=== PATIENT | female | born 1955 | race Caucasian/White ===

== ENCOUNTER 2023-06-04 09:05 | Outpatient (RCR) | payer MEDICARE, SELFPAY | END 2023-06-04 23:59 | disposition home or self-care (01) | LOC: RPT 09:05 | PROVIDERS: ATTENDING PHYSICIAN Internal Medicine | DX: M62.89 Other specified disorders of muscle (principal); N39.41 Urge incontinence; M62.81 Muscle weakness (generalized); R27.8 Other lack of coordination | CPT/HCPCS: 97014; 97112; 97140; 97162; 97530 ==

== ENCOUNTER → 2023-06-19 14:59 | Outpatient (REF) | payer MEDICARE, SELFPAY | LOC: WDC 14:59 | PROVIDERS: ATTENDING PHYSICIAN Obstetrics & Gynecology; FAMILY PHYSICIAN Internal Medicine | DX: R92.2 Inconclusive mammogram (principal) | CPT/HCPCS: 76641 ==

== ENCOUNTER → 2023-06-26 15:48 | Outpatient (REF) | payer MEDICARE, SELFPAY | LOC: RAD 15:48 | PROVIDERS: ATTENDING PHYSICIAN Internal Medicine | DX: R10.30 Lower abdominal pain, unspecified (principal) | CPT/HCPCS: 76882 ==

== ENCOUNTER 2023-07-03 18:21 | Outpatient (RCR) | payer MEDICARE, SELFPAY | END 2023-07-03 23:59 | disposition home or self-care (01) | LOC: RPT 18:21 | PROVIDERS: ATTENDING PHYSICIAN Internal Medicine | DX: M62.89 Other specified disorders of muscle (principal); N39.41 Urge incontinence; M62.81 Muscle weakness (generalized); R27.8 Other lack of coordination; Z73.6 Limitation of activities due to disability | CPT/HCPCS: 97014; 97112; 97530 ==

== ENCOUNTER 2023-07-31 15:23 | Outpatient (RCR) | payer MEDICARE, SELFPAY | END 2023-07-31 23:59 | disposition home or self-care (01) | LOC: RPT 15:23 | PROVIDERS: ATTENDING PHYSICIAN Internal Medicine | DX: M62.89 Other specified disorders of muscle (principal); N39.41 Urge incontinence; Z73.6 Limitation of activities due to disability; M62.81 Muscle weakness (generalized); R27.8 Other lack of coordination | CPT/HCPCS: 97014; 97112; 97530 ==

== ENCOUNTER 2023-08-30 14:00 | Outpatient (RCR) | payer MEDICARE, SELFPAY | END 2023-08-30 23:59 | disposition home or self-care (01) | LOC: RPT 14:00 | PROVIDERS: ATTENDING PHYSICIAN Internal Medicine | DX: M62.89 Other specified disorders of muscle (principal); N39.41 Urge incontinence; Z73.6 Limitation of activities due to disability; M62.81 Muscle weakness (generalized); R27.8 Other lack of coordination | CPT/HCPCS: 97112; 97140 ==

== ENCOUNTER 2023-09-18 14:23 | Outpatient (RCR) | payer MEDICARE, SELFPAY | END 2023-09-18 23:59 | disposition home or self-care (01) | LOC: RPT 14:23 | PROVIDERS: ATTENDING PHYSICIAN Internal Medicine | DX: N39.41 Urge incontinence (principal); M62.81 Muscle weakness (generalized); R27.8 Other lack of coordination; Z73.6 Limitation of activities due to disability | CPT/HCPCS: 97112; 97530 ==

== ENCOUNTER 2023-10-30 14:18 | Outpatient (RCR) | payer MEDICARE, SELFPAY | END 2023-10-30 23:59 | disposition home or self-care (01) | LOC: RPT 14:18 | PROVIDERS: ATTENDING PHYSICIAN Internal Medicine | DX: M62.89 Other specified disorders of muscle (principal); Z73.6 Limitation of activities due to disability; R27.8 Other lack of coordination | CPT/HCPCS: 97140; 97530 ==

== ENCOUNTER 2023-11-27 17:44 | Outpatient (RCR) | payer MEDICARE, SELFPAY | END 2023-11-27 23:59 | disposition home or self-care (01) | LOC: RPT 17:44 | PROVIDERS: ATTENDING PHYSICIAN Internal Medicine | DX: M62.89 Other specified disorders of muscle (principal); N39.41 Urge incontinence; Z73.6 Limitation of activities due to disability; M62.81 Muscle weakness (generalized); R27.8 Other lack of coordination | CPT/HCPCS: 97530 ==

== ENCOUNTER → 2023-12-03 06:24 | Day surgery (SDC) | payer MEDICARE, SELFPAY | LOC: GI 06:24 | PROVIDERS: ATTENDING PHYSICIAN Internal Medicine Gastroenterology; FAMILY PHYSICIAN Internal Medicine | DX: Z12.11 Encounter for screening for malignant neoplasm of colon (principal); Z80.0 Family history of malignant neoplasm of digestive organs; Z83.719 Family history of colon polyps, unspecified | CPT/HCPCS: G0105 ==

== ENCOUNTER 2024-01-03 15:56 | Outpatient (RCR) | payer MEDICARE, SELFPAY | END 2024-01-03 23:59 | disposition home or self-care (01) | LOC: RPT 15:56 | PROVIDERS: ATTENDING PHYSICIAN Internal Medicine; FAMILY PHYSICIAN Internal Medicine | DX: M54.2 Cervicalgia (principal); Z73.6 Limitation of activities due to disability | CPT/HCPCS: 97010; 97110; 97140; 97162 ==

== ENCOUNTER 2024-02-03 15:04 | Outpatient (RCR) | payer MEDICARE, SELFPAY | END 2024-02-03 23:59 | disposition home or self-care (01) | LOC: RPT 15:04 | PROVIDERS: ATTENDING PHYSICIAN Internal Medicine; FAMILY PHYSICIAN Internal Medicine | DX: M54.2 Cervicalgia (principal); Z73.6 Limitation of activities due to disability | CPT/HCPCS: 97010; 97110; 97140 ==

== ENCOUNTER 2024-03-04 15:59 | Outpatient (RCR) | payer MEDICARE, SELFPAY | END 2024-03-04 23:59 | disposition home or self-care (01) | LOC: RPT 15:59 | PROVIDERS: ATTENDING PHYSICIAN Internal Medicine; FAMILY PHYSICIAN Internal Medicine | DX: M54.2 Cervicalgia (principal); Z73.6 Limitation of activities due to disability | CPT/HCPCS: 97010; 97110; 97140 ==

== ENCOUNTER 2024-03-30 15:59 | Outpatient (RCR) | payer MEDICARE, SELFPAY | END 2024-03-30 23:59 | disposition home or self-care (01) | LOC: RPT 15:59 | PROVIDERS: ATTENDING PHYSICIAN Internal Medicine; FAMILY PHYSICIAN Internal Medicine | DX: M54.2 Cervicalgia (principal); Z73.6 Limitation of activities due to disability; M54.6 Pain in thoracic spine; M25.512 Pain in left shoulder | CPT/HCPCS: 97010; 97110; 97140 ==

== ENCOUNTER → 2024-04-06 15:05 | Outpatient (REF) | payer MEDICARE, SELFPAY | LOC: WDC 15:05 | PROVIDERS: ATTENDING PHYSICIAN Obstetrics & Gynecology; FAMILY PHYSICIAN Internal Medicine | DX: Z12.31 Encounter for screening mammogram for malignant neoplasm of breast (principal) | CPT/HCPCS: 77063; 77067 ==

== ENCOUNTER 2024-04-13 16:00 | Outpatient (RCR) | payer MEDICARE, SELFPAY | END 2024-04-14 14:52 | disposition home or self-care (01) | LOC: RPT 16:00 | PROVIDERS: ATTENDING PHYSICIAN Internal Medicine; FAMILY PHYSICIAN Internal Medicine | DX: M54.2 Cervicalgia (principal); Z73.6 Limitation of activities due to disability; M54.6 Pain in thoracic spine; M25.512 Pain in left shoulder | CPT/HCPCS: 97010; 97110; 97140 ==

== ENCOUNTER → 2024-05-12 08:37 | Outpatient (REF) | payer MEDICARE, SELFPAY | LOC: RAD 08:37 | PROVIDERS: ATTENDING PHYSICIAN Obstetrics & Gynecology; FAMILY PHYSICIAN Internal Medicine | DX: N83.209 Unspecified ovarian cyst, unspecified side (principal) | CPT/HCPCS: 76830; 76856 ==

== ENCOUNTER → 2024-06-11 10:45 | Outpatient (REF) | payer MEDICARE, SELFPAY | LOC: WDC 10:45 | PROVIDERS: ATTENDING PHYSICIAN Obstetrics & Gynecology; FAMILY PHYSICIAN Internal Medicine | DX: R92.2 Inconclusive mammogram (principal) | CPT/HCPCS: 76641 ==

== ENCOUNTER → 2024-08-03 12:22 | Outpatient (REF) | payer MEDICARE, SELFPAY | LOC: CLAB 12:22 | PROVIDERS: ATTENDING PHYSICIAN Otolaryngology | DX: J34.89 Other specified disorders of nose and nasal sinuses (principal) | CPT/HCPCS: 87070 ==

== ENCOUNTER → 2024-12-29 09:16 | Outpatient (REF) | payer MEDICARE, SELFPAY | LOC: RAD 09:16 | PROVIDERS: ATTENDING PHYSICIAN Advanced Practice Midwife; FAMILY PHYSICIAN Internal Medicine | DX: N89.8 Other specified noninflammatory disorders of vagina (principal) | CPT/HCPCS: 76830; 76856 ==